=== PATIENT | female | born 1955 | race Caucasian/White ===

== ENCOUNTER → 2016-04-15 | Outpatient (CLI) | payer OTHER | LOC: RAD 08:45 | PROVIDERS: ATTEND Family Medicine | DX: R13.13 Dysphagia, pharyngeal phase (principal) | CPT/HCPCS: 74220 ==

== ENCOUNTER → 2016-06-17 | Outpatient (CLI) | payer OTHER | LOC: WI 07:55 | PROVIDERS: ATTEND Family Medicine | DX: Z12.31 Encounter for screening mammogram for malignant neoplasm of breast (principal) | CPT/HCPCS: 77067; G0202 ==

== ENCOUNTER → 2017-06-27 | Outpatient (CLI) | payer OTHER ==
--- NOTE | 2017-06-27 12:41 | WOMENS IMAGING REPORT ---
EXAM DESCRIPTION: BILAT SCREENING MAMMO W/CAD COMPLETED DATE/TIME: 06/27/2017 10:21 am REASON FOR STUDY: SCREENING MAMMO Z12.31 ENCNTR SCREEN MAMMOGRAM FOR MALIGNANT NEOPLASM OF MARY COMPARISON: Multiple since 2008 TECHNIQUE: Standard craniocaudal and mediolateral oblique views of each breast recorded using digita l acquisition. LIMITATIONS: None. FINDINGS: Findings present which are benign by mammographic criteria. No suspicious masses, calcifi cations or architectural distortion. Pertinent benign findings: Old right breast stereotactic biopsy clip Read with the assistance of CAD. .[facility] - R2 Cenova Version 1.3 .[facility] Imaging - R2 Cenova Version 1.3 .[facility] - R2 Cenova Version 2.4 .[facility] [place] R2 Cenova Version 2.4 .[facility] - R2 [employer] Version 9.2 Benign mammographic findings may include one or more of the following: Smooth masses, popcorn/rim/co arse calcifications, asymmetries, post-procedure changes, and lesions with long-standing stability. IMPRESSION: BENIGN MAMMOGRAPHIC FINDINGS. BIRADS 2 BREAST DENSITY: a. The breasts are almost entirely fatty. BIRAD: 2 BENIGN FINDING(S) RECOMMENDATION: ROUTINE SCREENING Please continue yearly bilateral screening mammography in June 2018. Please consider bilateral screen ing tomosynthesis. COMMENT: The patient has been notified of the results by letter per MQSA requirements. Additional no tification policies are in place for contacting patient with suspicious or incomplete findings. Quality ID #[id number]: The [employer] recommends an annual screening mammogram for women aged 40 years or over. This facility utilizes a reminder system to ensure that all patients receive reminder letters, and/or direct phone calls for appointments. This includes reminders for routine scr eening mammograms, diagnostic mammograms, or other Breast Imaging Interventions when appropriate. Th is patient will be placed in the appropriate reminder system. The [employer] (ACR) has developed recommendations for screening MRI of the breast s in certain patient populations, to be used in conjunction with mammography. Breast MRI surveillanc e may be appropriate for women with more than 20% lifetime risk of developing breast cancer as deter mined by genetic testing, significant family history of the disease, or history of mantle radiation f or Hodgkins Disease. ACR Practice Guidelines 2008. TECHNICAL DOCUMENTATION: FINDING NUMBER: (1) ASSESSMENT: (1) JOB ID: [id number] [employer]- All Rights Reserved Reading location - IP/workstation name: [email or web address]
== END ==
LOC: RAD 10:03
PROVIDERS: ATTEND Family Medicine
DX: Z12.31 Encounter for screening mammogram for malignant neoplasm of breast (principal)
CPT/HCPCS: 77067

== ENCOUNTER 2018-12-05 20:18 | Observation (INO) | payer OTHER ==
[2018-12-05] MEDS ORDERED: ASPIRIN 81 MG TABLET, CHEWABLE PO ONE (20:26)
[2018-12-05 20:39] LABS: ABSOLUTE BASOPHILS # (AUTO) 0.1 10^3/uL (0.0-0.2); ABSOLUTE EOSINOPHILS # (AUTO) 0.2 10^3/uL (0.0-0.6); ABSOLUTE LYMPHOCYTES (AUTO) 2.4 10^3/uL (0.5-4.7); ABSOLUTE MONOCYTES (AUTO) 0.6 10^3/uL (0.1-1.4); ABSOLUTE NEUT (AUTO) 2.6 10^3/uL (1.7-8.2); EOSINOPHILS % (AUTO) 3.3 % (0-6); HEMATOCRIT 39.1 % (36.0-47.0); HEMOGLOBIN 13.8 g/dL (12.0-15.5); LYMPHOCYTES % (AUTO) 40.9 % (13-45); MEAN CORPUSCULAR HGB CONC 35.4 g/dL (32.0-36.0); MEAN CORPUSCULAR VOLUME 85 fl (80-97); MONOCYTES % (AUTO) 10.6 % (3-13); PLATELET COUNT 297 10^3/uL (150-450); RED BLOOD COUNT 4.61 10^6/uL (3.72-5.28); RED CELL DISTRIBUTION WIDTH 13.9 % (11.5-14.0); SEGMENTED NEUTROPHILS % (AUTO) 44.2 % (42-78); TOTAL CELLS COUNTED % (AUTO) 100 %; WHITE BLOOD COUNT 5.9 10^3/uL (4.0-10.5)
--- NOTE | 2018-12-05 20:40 | ER Document Report ---
ED Medical Screen (RME) - General Stated Complaint: CHEST PAIN Time Seen by Provider: 12/05/18 20:35 Primary Care Provider: RICARDO REICH MD [Primary Care Provider] - Follow up as needed Mode of Arrival: Medic Information source: Patient Notes: 63-year-old female presents emergency department with complaints of midsternal chest burning explosion in her chest while she was sitting on the couch tonight. She reports she did feel quite short of breath. Reports she had a stress test done last year. Reports family history of cardiac disease. Patient reports the chest pain was pretty intense upon arrival of EMS. It slightly decreased and then returned she was given a nitro and that helped the pain decreased. Denies trauma. Denies fever vomiting diarrhea. I have greeted and performed a rapid initial assessment of this patient. A comprehensive ED assessment and evaluation of the patient, analysis of test results and completion of the medical decision making process will be conducted by additional ED providers. Dictation of this chart was performed using voice recognition software; therefore, there may be some unintended grammatical errors. TRAVEL OUTSIDE OF THE [place] IN LAST 30 DAYS: No Course - Laboratory Result Diagrams: 12/05/18 20:20 12/05/18 20:20 Doctor's Discharge - Discharge Referrals: RICARDO REICH MD [Primary Care Provider] - Follow up as needed
[2018-12-05 21:00] LABS: ALBUMIN 4.9 g/dL (3.5-5.0); ALKALINE PHOSPHATASE 81 U/L (38-126); ANION GAP 15 (5-19); ASPARTATE AMINO TRANSFERASE 38 U/L (14-36); BILIRUBIN,TOTAL 0.4 mg/dL (0.2-1.3); BLOOD UREA NITROGEN 17 mg/dL (7-20); CARBON DIOXIDE 25 mmol/L (22-30); CHLORIDE 99 mmol/L (98-107); CREATINE KINASE 95 U/L (30-135); GLUCOSE 161 mg/dL (75-110); POTASSIUM 3.5 mmol/L (3.6-5.0); TOTAL PROTEIN 7.6 g/dL (6.3-8.2)
--- NOTE | 2018-12-05 21:03 | ER Document Report ---
ED Cardiac - General Chief Complaint: Chest Pain Stated Complaint: CHEST PAIN Time Seen by Provider: 12/05/18 21:03 Mode of Arrival: Ambulatory Information source: Patient, Relative Notes: HISTORY OF PRESENT ILLNESS: Patient is a 63-year-old female with a past medical history of hypertension, hyperlipidemia and family history of coronary disease who presents with chest pain that occurred prior to arrival. Patient reports symptoms began prior to arrival in a seated position while at rest, burning in origin without radiation, there is some mild associated shortness of breath. She called her and then walked up stairs to her second floor of her house to get his attention, and states that this exertion did not change her symptoms. Her symptoms have resolved since then and currently she denies any chest pain or other symptoms. Of note, the patient reports having similar episode over a year ago and had a normal stress test. Location: Chest Onset: Prior to arrival Alleviation: None Provocation: None Quality: Burning Radiation: None Severity: Mild Timing: Intermittent, resolved History of CAD: None Associated symptoms: Momentary shortness of breath now resolved, no nausea or vomiting, no diaphoresis REVIEW OF SYSTEMS: CONSTITUTIONAL : Denies fever or chills, no sweats. Denies recent illness. EENT: Denies eye, ear, throat, or mouth pain or symptoms. Denies nasal or sinus congestion. CARDIOVASCULAR: Positive for chest pain. Denies swelling of the legs. RESPIRATORY: Denies cough, cold, or chest congestion. Denies shortness of breath or difficulty breathing. Denies wheezing. GASTROINTESTINAL: Denies abdominal pain. Denies nausea, vomiting, or diarrhea. Denies constipation. GENITOURINARY: Denies difficulty urinating, painful urination, burning, freq uency, or blood in urine. MUSCULOSKELETAL: Denies neck or back pain or joint pain or swelling. SKIN: Denies rash or skin lesions. HEMATOLOGIC : Denies easy bruising or bleeding. LYMPHATIC: Denies swollen, enlarged glands. NEUROLOGICAL: Denies altered mental status or loss of consciousness. Denies headache. Denies weakness or paralysis or loss of use of either side. Denies problems with gait or speech. Denies sensory or motor loss. PSYCHIATRIC: Denies anxiety or stress or depression. All other systems reviewed and negative. PHYSICAL EXAMINATION: GENERAL: Well-appearing, well-nourished and in no acute distress. HEAD: Atraumatic, normocephalic. No scalp deformity, depression, or crepitance. EYES: Pupils are 3 mm and equal/round/reactive to light, extraocular movements intact, sclera anicteric, conjunctiva are normal. ENT: Nares patent bilaterally, oropharynx. Moist mucous membranes. No tonsil hypertrophy. NECK: Normal range of motion, supple without lymphadenopathy. LUNGS: Breath sounds present, equal, and clear to auscultation bilaterally. No wheezes, rales, or rhonchi. HEART: Regular rate and rhythm without murmurs, rubs, or gallops. 2+ peripheral pulses. Normal capillary refill. ABDOMEN: Soft, nontender, nondistended. Normoactive bowel sounds. No guarding, no rebound. No masses appreciated. BACK: Normal contour, no midline tenderness. Rectal exam deferred. GENITAL/PELVIC: Deferred. EXTREMITIES: Normal range of motion, no pitting or edema. No cyanosis. NEUROLOGICAL: No focal neurological deficits. Moves all extremities spontaneously and on command. PSYCH: Normal mood, normal affect. No suicidal thoughts/ideations. No homicidal thoughts/ideations. No hallucinations. SKIN: Warm, dry, normal turgor, no rashes or lesions noted. ASSESSMENT AND PLAN: This patient is a 63-year-old female who presents with chest pain with risk factors and family history, concerning for unstable angina. 1. Will obtain chest pain labs and admit to the hospital for chest pain rule out. 2. Will treat pain if it returns. TRAVEL OUTSIDE OF THE [place] IN LAST 30 DAYS: No - HPI Patient complains to provider of: Chest pain Was the onset of pain: Sudden Is the pain a: New problem Chest pain location: Substernal Quality of pain: Burning Chest pain radiation location: None Severity now: None Severity at worst: Moderate Pain level currently: Denies Cardiac risk factors: Diabetes, Hypertension, + Family history Positive cardiac history: No Associated symptoms: Shortness of breath Exacerbated by: Denies Relieved by: Nothing Similar symptoms previously: Yes Recently seen / treated by doctor: No - Related Data Allergies/Adverse Reactions: aspirin Allergy (Verified 12/05/18 20:46) codeine Allergy (Verified 12/05/18 20:45) Penicillins Allergy (Verified 12/05/18 20:45) Home Medications: Omeprazole 20mg. metoprolol succinate 100mg. Irbesartan HCTZ 150-12.5mg. Simvastatin 40mg. Citalopram Hbr 20mg Past Medical History - General Information source: Patient - Social History Smoking Status: Never Smoker Chew tobacco use (# tins/day): No Frequency of alcohol use: None Drug Abuse: None Lives with: Family Family History: CAD Patient has suicidal ideation: No Patient has homicidal ideation: No - Past Medical History Cardiac Medical History: Reports: Hx Hypercholesterolemia, Hx Hypertension Pulmonary Medical History: Reports: None EENT Medical History: Reports: None Neurological Medical History: Reports: None Renal/ Medical History: Reports: None Malignancy Medical History: Reports: None GI Medical History: Reports: None Musculoskeletal Medical History: Reports None Skin Medical History: Reports None Psychiatric Medical History: Reports: None Traumatic Medical History: Reports: None Infectious Medical History: Reports: None Surgical Hx: Negative Past Surgical History: Reports: None - Immunizations Immunizations up to date: Yes Hx Diphtheria, Pertussis, Tetanus Vaccination: Yes Review of Systems - Review of Systems Constitutional: No symptoms reported EENT: No symptoms reported Cardiovascular: See HPI, Chest pain Respiratory: No symptoms reported Gastrointestinal: No symptoms reported Genitourinary: No symptoms reported Female Genitourinary: No symptoms reported Musculoskeletal: No symptoms reported Skin: No symptoms reported Hematologic/Lymphatic: No symptoms reported Neurological/Psychological: No symptoms reported -: Yes All other systems reviewed and negative Physical Exam - Vital signs Vitals: Temp 98.2 F 12/05/18 20:24 Interpretation: Normal Course - Re-evaluation Re-evalutation: 12/05/18 22:59 Labs show negative cardiac enzymes. EKG is unremarkable. Patient is admitted to the hospital. - Vital Signs Vital signs: Temp Pulse Resp BP Pulse Ox 98.0 F 63 20 131/60 H 99 12/06/18 04:04 12/06/18 04:04 12/06/18 04:04 12/06/18 04:04 12/06/18 04:04 - Laboratory Result Diagrams: 12/05/18 20:20 12/05/18 20:20 Laboratory results interpreted by me: 12/05/18 20:20 Potassium 3.5 L Glucose 161 H AST 38 H - Diagnostic Test Radiology reviewed: Image reviewed, Reports reviewed - EKG Interpretation by [place] EKG shows normal: Sinus rhythm Rate: Normal Rhythm: NSR [place]/QRS: No: Right axis deviation, Left axis deviation, RBBB, LBBB, IVCD, LAHB/LAFB, LPHB/LPFB, Bifasicular block Voltage: No: Increased voltage, Consistant with LVH, Decreased voltage, Throughout, Limb leads P Waves: No: CHRISTIANO, LAE, Absent, AV Dissociation, Other Heart block present: No: 1st Degree, Mobitz 1, Mobitz 2, CHB (3rd degree block) When compared to previous EKG there are: No significant change - Consults Dr. Gil Time consulted: 22:59 Consulted provider: will come to ER, will see as inpatient Discharge - Discharge Clinical Impression: Chest pain Qualifiers: Chest pain type: precordial pain Qualified Code(s): R07.2 - Precordial pain Condition: Stable Disposition: ADMITTED INPATIENT Admitting Provider: Jeffery (Hospitalist) Unit Admitted: Telemetry
[2018-12-05 21:11] LABS: CREATINE KINASE MB 1.14 ng/mL (<4.55)
[2018-12-05 21:12] LABS: TROPONIN I < 0.012 ng/mL
--- NOTE | 2018-12-05 22:00 | RADIOLOGY REPORT (SQ) ---
XR CHEST 1 VIEW EXAM DATE: 12/05/2018 8:39 PM CDT HISTORY: CP. COMPARISON: None. FINDINGS: The heart size is within normal limits. No consolidation, pleural effusion, or pneumothorax is seen. No acute bony findings. IMPRESSION: No acute cardiopulmonary disease.
[2018-12-05] MEDS ORDERED: ZOLPIDEM TARTRATE 5 MG TABLET PO PRN (22:55)
[2018-12-05] MEDS ORDERED: MAGNESIUM HYDROXIDE SUSP 30 ML UDCUP PO PRN (22:55)
[2018-12-05] MEDS ORDERED: ONDANSETRON HCL INJ/PF 4 MG/2 ML SDV IV PRN (22:55)
[2018-12-05] MEDS ORDERED: MAG HYDROX/AL HYDROX/SIMETH SUSP 30 ML UDCUP PO PRN (22:55)
[2018-12-05] MEDS ORDERED: HYDRALAZINE HCL INJ/PF 20 MG/1 ML SDV IV PRN (23:00)
[2018-12-05] MEDS ORDERED: ACETAMINOPHEN 325 MG TABLET PO PRN (23:00)
[2018-12-05] MEDS ORDERED: MORPHINE SULFATE 10 MG/ML INJ IV PRN (23:00)
[2018-12-05] MEDS ORDERED: DEXTROSE 50%-WATER 25 GM/50 ML DISP.SYRIN IV PRN ×2 (23:02)
[2018-12-05] MEDS ORDERED: DEXTROSE 40% GEL 15 GM TUBE PO PRN ×2 (23:02)
[2018-12-05] MEDS ORDERED: GLUCAGON,HUMAN RECOMB 1 MG INJ IM PRN (23:02)
[2018-12-05] MEDS ORDERED: INSULIN REG, HUMAN 100 UNIT/ML 3 ML VIAL (PYX) SUBCUT PRN (23:03)
[2018-12-05] MEDS ORDERED: FAMOTIDINE 20 MG TABLET PO ONE (23:15)
--- NOTE | 2018-12-06 03:30 | PDOC H&P ---
History of Present Illness Admission Date/PCP: 12/05/2018 22:48 RICARDO REICH MD Patient complains of: Chest pain History of Present Illness: SHWETA MOREAU is a 63 year old female who presented to the emergency room with acute chest pain. She admits that while sitting at home on her couch watching television she suddenly developed moderately intense substernal constant burning which persisted until she was treated with nitroglycerin in the emergency room. The pain involved the entire substernal region but did not radiate. The pain was accompanied by mild dyspnea. The patient denies other accompanying or associated signs and symptoms. She admits numerous prior similar episodes over the last several weeks generally lasting approximately 10 minutes and resolving spontaneously. She has not identified any aggravating or ameliorating factors for her chest pain. In the emergency room the patient was noted to have initial cardiac enzymes and an EKG which revealed no evidence of acute myocardial ischemia or injury. She was subsequently admitted to observation status for further evaluation and treatment. Past Medical History Cardiac Medical History: Reports: Hyperlipidema, Hypertension Denies: Coronary Artery Disease Pulmonary Medical History: Denies: Asthma, Chronic Obstructive Pulmonary Disease (COPD) EENT Medical History: Denies: Cataracts, Ears - Hearing aids Neurological Medical History: Denies: Hemorrhagic CVA, Ischemic CVA, Seizures Endocrine Medical History: Reports: Diabetes Mellitus Type 2 Denies: Diabetes Mellitus Type 1, Hyperthyroidism, Hypothyroidism, Obesity Renal/ Medical History: Denies: Chronic Kidney Disease, Nephrolithiasis Malignancy Medical History: Reports: None GI Medical History: Reports: None Musculoskeltal Medical History: Denies: Arthritis, Gout Skin Medical History: Denies: Eczema, Psoriasis Psychiatric Medical History: Denies: Alcohol Dependency, Substance Abuse, Tobacco Dependency Traumatic Medical History: Reports: None Hematology: Denies: Anemia, Bleeding Tendencies Infectious Medical History: Reports: None Past Surgical History Past Surgical History: Reports: Adenoidectomy, Tonsillectomy, Other - D&C Social History Information Source: Patient Lives with: Spouse/Significant other Smoking Status: Never Smoker Electronic Cigarette use?: No Frequency of Alcohol Use: None Hx Recreational Drug Use: No Drugs: None Hx Prescription Drug Abuse: No - Advance Directive Resuscitation Status: Full Code Surrogate healthcare decision maker:: Jose Miguel Moreau Family History Family History: CAD, CVA, Hypertension, Other - Dementia. denies: DM, Malignancy Parental Family History Reviewed: Yes Children Family History Reviewed: No Sibling(s) Family History Reviewed.: Yes Medication/Allergy Allergies/Adverse Reactions: aspirin Allergy (Verified 12/05/18 20:46) codeine Allergy (Verified 12/05/18 20:45) Penicillins Allergy (Verified 12/05/18 20:45) Review of Systems Constitutional: ABSENT: chills, fever(s) Eyes: ABSENT: visual disturbances, other - Eye pain Ears: ABSENT: hearing changes, other - Ear pain Nose, Mouth, and Throat: ABSENT: mouth pain, sore throat Cardiovascular: PRESENT: as per HPI, chest pain, dyspnea on exertion. ABSENT: edema, orthropnea, palpitations Respiratory: PRESENT: as per HPI, dyspnea. ABSENT: cough Gastrointestinal: ABSENT: abdominal pain, constipation, diarrhea, nausea, vomiting Genitourinary: ABSENT: dysuria, hematuria Musculoskeletal: ABSENT: back pain, joint swelling, muscle weakness Integumentary: ABSENT: diaphoresis, pruritus, rash Neurological: ABSENT: confusion, convulsions, focal weakness, memory loss, syncope Psychiatric: ABSENT: anxiety, depression Endocrine: ABSENT: cold intolerance, heat intolerance Hematologic/Lymphatic: ABSENT: easy bleeding, easy bruising Allergic/Immunologic: ABSENT: seasonal rhinorrhea Physical Exam Vital Signs: Temp Pulse Resp BP Pulse Ox 99 12/05/18 20:44 Intake & Output 12/03/18 12/04/18 12/05/18 23:59 23:59 23:59 Weight 62.9 kg General appearance: PRESENT: no acute distress, cooperative Head exam: PRESENT: atraumatic, normocephalic Eye exam: PRESENT: conjunctiva pink. ABSENT: conjunctival injection, scleral icterus Ear exam: PRESENT: normal external ear exam. ABSENT: bleeding, drainage Mouth exam: PRESENT: dry mucosa, neck supple Neck exam: ABSENT: thyromegaly, tracheal deviation Respiratory exam: PRESENT: clear to auscultation shabbir, symmetrical, unlabored Cardiovascular exam: PRESENT: RRR. ABSENT: clicks, gallop, rubs Pulses: PRESENT: normal radial pulses, normal dorsalis pedis pul Vascular exam: PRESENT: normal capillary refill. ABSENT: pallor GI/Abdominal exam: PRESENT: normal bowel sounds, soft Rectal exam: PRESENT: deferred Extremities exam: ABSENT: joint swelling, pedal edema Musculoskeletal exam: PRESENT: full ROM, normal inspection Neurological exam: PRESENT: alert, oriented to person, oriented to place, oriented to time, oriented to situation, CN II-XII grossly intact. ABSENT: motor sensory deficit Psychiatric exam: PRESENT: appropriate affect, normal mood Skin exam: PRESENT: dry, intact, warm. ABSENT: jaundice, rash, urticaria Results Laboratory Results: 12/05/18 20:20 12/05/18 20:20 12/05/18 12/05/18 20:20 20:20 WBC 5.9 RBC 4.61 Hgb 13.8 Hct 39.1 MCV 85 MCH 30.0 MCHC 35.4 RDW 13.9 Plt Count 297 Seg Neutrophils % 44.2 Sodium 138.5 Potassium 3.5 L Chloride 99 Carbon Dioxide 25 Anion Gap 15 BUN 17 Creatinine 0.69 Est GFR ( Amer) > 60 Glucose 161 H Calcium 10.0 Total Bilirubin 0.4 AST 38 H Alkaline Phosphatase 81 Total Protein 7.6 Albumin 4.9 12/05/18 12/05/18 20:20 20:20 Creatine Kinase 95 CK-MB (CK-2) 1.14 Troponin I < 0.012 Impressions: Chest X-Ray 12/05/18 20:39 IMPRESSION: No acute cardiopulmonary disease. Assessment and Plan - Diagnosis (1) Chest pain Qualifiers: Chest pain type: precordial pain Qualified Code(s): R07.2 - Precordial pain Is this a current diagnosis for this admission?: Yes Plan: Patient's chest pain will be evaluated utilizing serial cardiac enzymes. If her enzymes are negative and her chest pain remains well controlled she will be discharged in the morning. A Cardiolite stress test was offered but the patient already has a cardiac stress test scheduled with her own dye tank tender upcoming shortly in December, though she declines having a Cardiolite stress test done here. Her chest pain will be treated with sublingual nitroglycerin and failing that to relieve her pain morphine sulfate 2 to 4 mg IV every 2 hours as needed utilizing a sliding pain scale. (2) Hypertension Qualifiers: Hypertension type: essential hypertension Qualified Code(s): I10 - Essential (primary) hypertension Is this a current diagnosis for this admission?: Yes Plan: Patient will be maintained on her usual medications for control of her hy pertension and her blood pressure be monitored closely throughout her hospital course. (3) Hyperlipidemia Qualifiers: Hyperlipidemia type: unspecified Qualified Code(s): E78.5 - Hyperlipidemia, unspecified Is this a current diagnosis for this admission?: Yes Plan: Patient be maintained on her usual medications for lipid control. A lipid profile will be obtained to assess the efficacy of her current therapy. (4) Diabetes mellitus type 2 in nonobese Is this a current diagnosis for this admission?: Yes Plan: Patient will be maintained on her usual diabetic regiment and a diabetic diet. Before meals and at bedtime Accu-Cheks will be obtained and hyperglycemia will be treated with sliding scale insulin, hypoglycemia will be treated with a hypoglycemic protocol. Hemoglobin A1c will be obtained to assess the efficacy of current therapy. - Time Time Spent with patient: 25-34 minutes Medications reviewed and adjusted accordingly: Yes Anticipated discharge: Home Within: within 24 hours - Inpatient Certification Based on my medical assessment, after consideration of the patient's comorbidities, presenting symptoms, or acuity I expect that the services needed warrant INPATIENT care.: No I certify that my determination is in accordance with my understanding of Medicare's requirements for reasonable and necessary INPATIENT services [42 CFR 412.3e].: No
[2018-12-06] MEDS ORDERED: HEPARIN SOD (PORCINE) 5,000 UNIT/ML 1 ML VIAL SUBCUT SCH (06:00)
--- NOTE | 2018-12-06 07:41 | EKG REPORT ---
SEVERITY:- BORDERLINE ECG - SINUS RHYTHM NONSPECIFIC ST-T CHANGES- INFERIOR LEADS : Confirmed by: Hector Symth MD 06-Dec-2018 07:40:08
[2018-12-06 09:05] LABS: CHOLESTEROL 217.14 mg/dL (0-200); TRIGLYCERIDES 172 mg/dL (<150)
[2018-12-06 09:17] LABS: DIRECT LDL 142 mg/dL (<100)
[2018-12-06 09:26] LABS: VLDL CHOLESTEROL 34.4 mg/dL (10-31)
[2018-12-06 09:27] LABS: TROPONIN I < 0.012 ng/mL
[2018-12-06] MEDS ORDERED: FAMOTIDINE 20 MG TABLET PO SCH (10:00)
[2018-12-06] MEDS ORDERED: DOCUSATE SODIUM 100 MG CAPSULE PO SCH (10:00)
[2018-12-06 10:34] VITALS: BP 147/67
--- NOTE | 2018-12-06 14:51 | PDOC DISCHARGE SUMMARY ---
Impression - Admit/DC Date/PCP Admission Date/Primary Care Provider: 12/05/18 23:14 RICARDO REICH MD Discharge Date: 12/06/18 - Assessment Summary: 63-year-old female who was admitted to the hospital through the emergency room for chest pain patient has had prior similar episodes of the last several weeks patient has a strong family history of heart disease and therefore will be admitted to rule out. Patient already has an appointment scheduled with cardiology for outpatient stress testing. Patient's troponins were normal x3, she was asking to be discharged. Patient has had no chest pain since being in the hospital. I did write a prescription for nitroglycerin to use as needed, she will follow-up with cardiology as an outpatient for stress testing and further diagnostic studies as indicated - Additional Information Resuscitation Status: Full Code Discharge Diet: Diabetic Discharge Activity: Activity As Tolerated Referrals: RICARDO REICH MD [Primary Care Provider] - 12/15/18 8:30 am Prescriptions: Nitroglycerin [Nitrostat 0.4 mg (1/150 Gr) Tabs 25/Bottle] 1 tab SL Q5MP PRN #25 tab.subl PRN Reason: Home Medications: Alprazolam 0.25 mg PO Q8HP PRN 12/06/18 Ascorbic Acid [Vitamin C 500 mg Tablet] 500 mg PO DAILY 12/06/18 Citalopram Hydrobromide [Celexa 20 mg Tablet] 20 mg PO DAILY 12/06/18 Fluticasone Propionate [Flonase Nasal Homestead 50 Mcg/Homestead 16 gm] 2 spray NASL DAILYP PRN 12/06/18 Irbesartan/Hydrochlorothiazide [Irbesartan-Hctz 150-12.5 mg Tb] 1 each PO DAILY 12/06/18 Metoprolol Succinate 100 mg PO DAILY 12/06/18 Multivitamin [Tab-A-Emilia (Multiple Vitamin) Tablet] 1 tab PO DAILY 12/06/18 Nitroglycerin [Nitrostat 0.4 mg (1/150 Gr) Tabs 25/Bottle] 1 tab SL Q5MP PRN #25 tab.subl 12/06/18 Omeprazole 20 mg PO DAILY 12/06/18 Simvastatin [Zocor 40 mg Tablet] 40 mg PO QHS 12/06/18 History of Present Illiness History of Present Illness: SHWETA MUNIZ is a 63 year old female Physical Exam Vital Signs: Temp Pulse Resp BP Pulse Ox 97.9 F 68 16 147/67 H 100 12/06/18 10:30 12/06/18 10:30 12/06/18 10:30 12/06/18 10:30 12/06/18 10:30 Intake & Output 12/05/18 12/06/18 12/07/18 06:59 06:59 06:59 Output Total 0 Balance 0 Weight 64 kg Results Laboratory Results: WBC 5.9 10^3/uL (4.0-10.5) 12/05/18 20:20 RBC 4.61 10^6/uL (3.72-5.28) 12/05/18 20:20 Hgb 13.8 g/dL (12.0-15.5) 12/05/18 20:20 Hct 39.1 % (36.0-47.0) 12/05/18 20:20 MCV 85 fl (80-97) 12/05/18 20:20 MCH 30.0 pg (27.0-33.4) 12/05/18 20:20 MCHC 35.4 g/dL (32.0-36.0) 12/05/18 20:20 RDW 13.9 % (11.5-14.0) 12/05/18 20:20 Plt Count 297 10^3/uL (150-450) 12/05/18 20:20 Lymph % (Auto) 40.9 % (13-45) 12/05/18 20:20 Winn % (Auto) 10.6 % (3-13) 12/05/18 20:20 Eos % (Auto) 3.3 % (0-6) 12/05/18 20:20 Baso % (Auto) 1.0 % (0-2) 12/05/18 20:20 Absolute Neuts (auto) 2.6 10^3/uL (1.7-8.2) 12/05/18 20:20 Absolute Lymphs (auto) 2.4 10^3/uL (0.5-4.7) 12/05/18 20:20 Absolute Monos (auto) 0.6 10^3/uL (0.1-1.4) 12/05/18 20:20 Absolute Eos (auto) 0.2 10^3/uL (0.0-0.6) 12/05/18 20:20 Absolute Basos (auto) 0.1 10^3/uL (0.0-0.2) 12/05/18 20:20 Seg Neutrophils % 44.2 % (42-78) 12/05/18 20:20 Sodium 138.5 mmol/L (137-145) 12/05/18 20:20 Potassium 3.5 mmol/L (3.6-5.0) L 12/05/18 20:20 Chloride 99 mmol/L (98-107) 12/05/18 20:20 Carbon Dioxide 25 mmol/L (22-30) 12/05/18 20:20 Anion Gap 15 (5-19) 12/05/18 20:20 BUN 17 mg/dL (7-20) 12/05/18 20:20 Creatinine 0.69 mg/dL (0.52-1.25) 12/05/18 20:20 Est GFR ( Amer) > 60 (>60) 12/05/18 20:20 Est GFR (MDRD) Non-Af > 60 (>60) 12/05/18 20:20 Glucose 161 mg/dL (75-110) H 12/05/18 20:20 Hemoglobin A1c % 6.0 % (4.7-6.0) 12/06/18 08:26 Calcium 10.0 mg/dL (8.4-10.2) 12/05/18 20:20 Total Bilirubin 0.4 mg/dL (0.2-1.3) 12/05/18 20:20 Direct Bilirubin 0.0 mg/dL (0.0-0.4) 12/05/18 20:20 Neonat Total Bilirubin Not Reportable 12/05/18 20:20 Neonat Direct Bilirubin Not Reportable 12/05/18 20:20 Neonat Indirect Bili Not Reportable 12/05/18 20:20 AST 38 U/L (14-36) H 12/05/18 20:20 ALT 37 U/L (<35) 12/05/18 20:20 Alkaline Phosphatase 81 U/L (38-126) 12/05/18 20:20 Creatine Kinase 76 U/L (30-135) 12/06/18 08:26 CK-MB (CK-2) 0.60 ng/mL (<4.55) 12/06/18 08:26 Troponin I < 0.012 ng/mL 12/06/18 08:26 Total Protein 7.6 g/dL (6.3-8.2) 12/05/18 20:20 Albumin 4.9 g/dL (3.5-5.0) 12/05/18 20:20 Triglycerides 172 mg/dL (<150) H 12/06/18 08:26 Cholesterol 217.14 mg/dL (0-200) H 12/06/18 08:26 LDL Cholesterol Direct 142 mg/dL (<100) H 12/06/18 08:26 VLDL Cholesterol 34.4 mg/dL (10-31) H 12/06/18 08:26 HDL Cholesterol 47 mg/dL (>40) 12/06/18 08:26 12/05/18 12/06/18 12/06/18 20:20 00:22 08:26 CK-MB (CK-2) 1.14 0.60 Troponin I < 0.012 < 0.012 < 0.012 Impressions: Chest X-Ray 12/05/18 20:39 IMPRESSION: No acute cardiopulmonary disease. Stroke Is this a Stroke Patient?: No Acute Heart Failure - Is this a Heart Failure Patient?: No
== END 2018-12-06 10:50 | disposition home or self-care (01) ==
LOC: ER 20:18 → EH 23:14 → 3W 12-06 02:26
PROVIDERS: ADMIT Emergency Medicine; ATTEND Emergency Medicine
DX: R07.2 Precordial pain (principal); R06.00 Dyspnea, unspecified; I10 Essential (primary) hypertension; E78.5 Hyperlipidemia, unspecified; E11.9 Type 2 diabetes mellitus without complications; Z82.49 Family history of ischemic heart disease and other diseases of the circulatory system; Z79.899 Other long term (current) drug therapy
CPT/HCPCS: 93005; 99285; 36415 ×2; 82553 ×2; 82550 ×2; 85025; 80053; 84484 ×2; 83036; 80061; 71045; 93010; G0378 ×3